=== PATIENT | female | born 1960 | race Caucasian/White ===

== ENCOUNTER → 2016-07-14 | Outpatient (CLI) | payer OTHER ==
[~2016-07-14] MED LIST: ALBUTEROL20 ml INH; CARDURA XL4 MG PO; CLARITIN10 M3 PO; NICOTINE PATCH1 EAC1 TD; PEPCID AC20 M2 PO; PREDNISONE PO; ZOLOFT50 MG PO
[2016-07-14 16:08] LABS: BASOPHIL# 0.1 X10e3 (0-0.3); BASOPHIL% 0.9 % (0-2.5); EOSINOPHIL# 0.2 X10e3 (0-0.7); HEMATOCRIT 37.2 % (35.0-45.0); HEMOGLOBIN 12.2 gm/dL (12.0-16.0); LYMPHOCYTE# 1.9 X10e3 (1.0-3.5); LYMPHOCYTE% 24.3 % (17.0-45.0); MEAN CORPUSCULAR HEMOGLOBIN 30.5 PG (28-34); MEAN CORPUSCULAR HGB CONC 32.8 g/dL (30-36); MEAN PLATELET VOLUME 7.6 FL (6.5-11.5); MONOCYTE# 0.5 X10e3 (0-1.0); MONOCYTE% 6.3 % (3.0-12.0); NEUTROPHIL# 5.1 X10e3 (1.5-7.1); NEUTROPHIL% 65.5 % (40-75); PLATELET COUNT 191 X10e3 (140-420); RED CELL DISTRIBUTION WIDTH 14.1 % (11.0-15.5); WHITE BLOOD COUNT 7.9 X10e3 (4.0-10.5)
[2016-07-14 16:15] LABS: DIFF IND NO
[2016-07-14 16:25] LABS: BUN/CREATININE RATIO 11.66; CALCIUM SERUM 9.2 mg/dL (8.4-10.2); CREATININE SERUM 1.2 mg/dL (0.6-1.4); GLOM FILT RATE Estimated 50.5 mL/min (>60)
== END | disposition home or self-care (01) ==
LOC: CLAB 15:42
PROVIDERS: Internal Medicine Nephrology
DX: N18.3 Chronic kidney disease, stage 3 (moderate) (principal)
CPT/HCPCS: 36415; 80048; 85025

== ENCOUNTER 2016-07-30 20:45 | Inpatient (IN) | payer OTHER ==
--- NOTE | ~2016-07-30 | CO ---
Unit #: [id number] #: [id number] Patient: QING ASHBY [id number] [facility]. [place], [place] [address] [id number] I MR#: [id number] NAME: QING ASHBY ROOM: 236 Age: 55 Sex: F Admission Date: 07/31/2016 : 1960 Attending Physician: Marni Martino M.D. Primary Care Physician: Delonte Sherwood M.D. Requesting Physician: Shelton Rock M.D. Consultation Date: 07/31/2016 CONSULTATION REPORT REASON FOR CONSULT Left lung mass and atelectasis. HISTORY OF PRESENT ILLNESS Ms. Qing Ashby is a 55-year-old female with a complaint of cough, fever, malaise who presented to [facility] emergency room. A CT of the chest was performed on 07/30/2016 which revealed complete atelectasis of the left upper lobe with narrowing at the left upper lobe bronchus suggestive of mass. Since admit, she has undergone an MRI of the brain and now a CT of the abdomen and pelvis. Dr. Weiss has been consulted for bronchoscopy in the a.m. and Dr. Delacruz is consulted for evaluation of atelectasis and suggested mass. PAST MEDICAL HISTORY 1. Anxiety. 2. Depression. 3. COPD. 4. Seasonal allergies. 5. GERD. 6. Hypertension. PAST SURGICAL HISTORY 1. EGD and colonoscopy 2014. 2. Bilateral tubal ligation. 3. Lumbar spinal surgery. 4. Ectopic . HOME MEDICATIONS Reviewed and remain in the chart. ALLERGIES 1. Penicillin. 2. Phenergan. SOCIAL HISTORY She smoked 1-1/2 packs of cigarettes per day for 25 years. She lives with daughter and granddaughter and her significant other. She denies any etoh abuse. She denies any illicit drug use as well. FAMILY HISTORY Father with lung and brain cancer. REVIEW OF SYSTEMS Positive for fever, chills, dyspnea on exertion, cough, wheezing, anxiety, Unit #: [id number] #: [id number] Patient: QING ASHBY depression and left shoulder pain. PHYSICAL EXAMINATION VITAL SIGNS: Temperature 98, heart rate 96 and regular, respiratory rate 20, blood pressure 150/66. Patient is on 2 liters nasal cannula. GENERAL: Ms. Qing Ashby is a well-groomed moderately obese, 55-year-old female, good historian regarding her own medical history. NEUROLOGIC/PSYCHIATRIC: Cranial nerves II-XII intact. Speech is appropriate and clear. She is congenial. HEENT: Normocephalic. No facial asymmetry. Sclerae anicteric. NECK: Supple. Trachea midline. No thyromegaly. No palpable cervical, supraclavicular, occipital lymphadenopathy. LUNGS: Auscultation of her lungs found them to be with expiratory wheezes with rhonchi that clear with cough. HEART: S1, S2 without rub, without murmur. No S3, no S4 and no peripheral edema. ABDOMEN: Large, round, soft. Bowel sounds positive. Nontender. No hepatosplenomegaly or pulsatile mass. DIAGNOSTIC STUDIES LABORATORY: BUN 17, creatinine 1.2, sodium 140, potassium 4.0. WBC 7.0, platelets 200, hemoglobin 12.9, hematocrit 39.7. IMPRESSION 1. Left upper lobe bronchus obstruction resulting in left upper lobe atelectasis. 2. Chronic obstructive pulmonary disease. 3. Gastroesophageal reflux disease. 4. Hypertension. 5. Anxiety. 6. Depression. PLAN 1. Dr. Delacruz will await the results of the bronchoscopy by Dr. Weiss. The patient will need a PET scan as an outpatient if she is positive for malignancy. 2. We will attempt to get PFTs and ABGs in the hospital. Dr. Weiss will request PFTs tomorrow and we are going to get ABGs tonight. 3. Then, Dr. Delacruz will review the MRI of the brain and we will follow with patient in our office. Dictated by... Soco Carey A.P.R.N. for Brittany Guy/juvencio TD: 07/31/2016 20:00 JOB #: [id number] Unit #: [id number] #: [id number] Patient: QING ASHBY CONSULTATION REPORT Page 1 of 1 X Soco Carey APRN CONSULTATION REPORT
--- NOTE | ~2016-07-30 | CO ---
Unit #: [id number] #: [id number] Patient: QING ASHBY [id number] [facility] [address] [facility]. [place], [place] [address] [id number] I MR#: [id number] NAME: QING ASHBY ROOM: 236 Age: 55 Sex: F Admission Date: 07/31/2016 : 1960 Attending Physician: Marni Martino M.D. Primary Care Physician: Delonte Sherwood M.D. Consultation Date: 08/01/2016 CONSULTATION REPORT LOCATION Room 236, bed 1. DIAGNOSIS Atelectasis left upper lobe. CHIEF COMPLAINT Chest pain and excessive cough with mild hemoptysis. HISTORY OF PRESENT ILLNESS Ms. Qing Ashby is a pleasant 55-year-old female who has a long-term history of smoking between one-half and one pack of cigarettes per day for 20 years. She presented to [facility] with a CT scan performed 07/31/2016 demonstrating narrowing of the left upper lobe bronchus with possible soft tissue component causing complete atelectasis left upper lobe. This was somewhat concerning for malignancy. As a result, patient was admitted. She was placed on IV antibiotics and ultimately underwent fiberoptic bronchoscopy with Dr. Dena Weiss earlier this morning, 08/01/2016. The patient was found to have no obvious endobronchial disease. Bronchial washings were obtained, however, no biopsy as there was no obvious mass. This was well tolerated. I have discussed this case with Pathology and initial review is read as negative though final slides have not been fully evaluated. Clearly, the specimen itself was mainly blood and inflammation with no obvious malignant cytology. I was asked to see Ms. Ashby for possible local radiotherapy. RECOMMENDATIONS Quite fortunately, Ms. Ashby likely has just local inflammation and infection resulting from pneumonia. She has inflammatory swelling of the left upper lobe bronchus with local irritation. Plans are to eliminate smoking all together. I have cautioned Ms. Ashby extensively about persistent smoking activity and development of malignancy in the future. Hopefully, she will utilize this as a wakeup call. She will also be placed on oral steroids as well as doxycycline. She will be utilizing albuterol inhaler to expand her airways as well. She is following up with Dr. Weiss as well as Dr. Delacruz in two weeks and possibly Dr. Rock in three weeks but unless final pathology is returned as positive, this may be unnecessary. I have nothing to offer Ms. Ashby at this time as she has no malignancy other than sound advice. It is my pleasure to see her in consultation. PAST MEDICAL HISTORY Unit #: [id number] #: [id number] Patient: QING ASHBY Remarkable for: 1. COPD. 2. Systemic hypertension. 3. Back surgery. 4. Tubal ligation. MEDICATIONS Include: 1. Albuterol. 2. Methylprednisolone. 3. Sertraline 50 mg daily. 4. Claritin 10 mg daily. 5. Transdermal nicotine patch. 6. Ativan for anxiety. 7. Doxycycline started 100 mg b.i.d. as an outpatient. 8. Protonix 40 mg daily. ALLERGIES 1. Penicillin. 2. Phenergan. NUTRITIONAL STATUS Stable. PAIN MANAGEMENT Improved. SOCIAL HISTORY Patient has smoked between one-half and one pack of cigarettes per day for 20 years. She denies alcohol abuse. She is not working currently. She has no exposure to known carcinogens. FAMILY HISTORY Remarkable for her father with lung cancer. PHYSICAL EXAMINATION VITAL SIGNS: Temperature 98.1, pulse 70, respirations 18, O2 saturation 96%, blood pressure 124/45. Height 5 feet 6 inches, weight 219, BMI 35. HEENT: Pupils are equal, round, reactive to light and accommodation. NECK: No obvious supraclavicular adenopathy. LUNGS: Demonstrate distant breath sounds but otherwise clear. Extensive physical exam not performed given current situation. EXTREMITIES: Demonstrate no clubbing, cyanosis, or edema on exam. NEUROLOGIC: No obvious neurological deficit. DIAGNOSTIC STUDIES LABORATORY: Glucose 156, BUN 14, creatinine 1.2, albumin 4.1, liver enzymes within normal limits. WBC 6.5, hemoglobin 12.4, platelet count 208,000. Approximately 30 minutes spent discussing case with patient. Dictated by... Buzz Snyder M.D. MRArcelia/cs Unit #: [id number] #: [id number] Patient: QING ASHBY TD: 08/01/2016 17:48 JOB #: [id number] CC: Brittany Guy M.D. ab Haj Ali, M.D. CONSULTATION REPORT Page 1 of 1 X Buzz Snyder MD CONSULTATION REPORT
--- NOTE | ~2016-07-30 | CO ---
Unit #: [id number] #: [id number] Patient: QING ASHBY [id number] [address] [place], [place] [address] [id number] MR#: [id number] NAME: QING ASHBY ROOM: 236 Age: 55 Sex: F Admission Date: 07/31/2016 : 1960 Attending Physician: Marni Martino M.D. Primary Care Physician: Delonte Sherwood M.D. Consultation Date: 07/31/2016 CONSULTATION REPORT CHIEF COMPLAINT Left upper lobe collapse. HISTORY OF PRESENT ILLNESS This is a 55-year-old female who has been smoking a half pack per day for 20 years. She came to the hospital with cough, wheezing, atypical chest pain, and chills. No fever. There is no blood. Patient had a CT of the chest on July 31, 2016, that showed narrowing of the left upper lobe bronchus with soft tissue changes with subsequent complete atelectasis of the left upper lobe. This is worrisome for malignancy. Patient is going for bronchoscopy either today or tomorrow. At present, she is very anxious and kind of depressed. REVIEW OF SYSTEMS CONSTITUTIONAL: No fever, no chills, no sweats, no weight loss. EYES: No visual symptoms. EARS, NOSE AND THROAT: There is no runny nose, sore throat or difficulty hearing. CARDIOVASCULAR: No chest pain. No shortness of breath. No palpitations. No orthopnea. No PND. RESPIRATORY: As mentioned above. GASTROINTESTINAL: No nausea, vomiting, diarrhea, constipation, hematochezia or melena. GENITOURINARY: No urinary frequency, hesitancy or urgency. No blood in the urine. MUSCULOSKELETAL: No muscle or joint pain. NEUROLOGIC: No headache. No numbness or tingling. No weakness. No seizure. PSYCHIATRIC: No anxiety, depression or mood disturbance. ENDOCRINE: No excessive urination or thirst. DERMATOLOGIC: No rash or change in the skin. ALLERGIC/IMMUNOLOGIC: No symptoms. HEMATOLOGIC/LYMPHATIC: Denies any symptoms. PAST MEDICAL HISTORY 1. Left upper lobe mass with left upper lobe collapse. 2. Chronic obstructive pulmonary disease. 3. Hypertension. SOCIAL HISTORY 1. Back surgery. 2. Tubal ligation. ALLERGIES Unit #: [id number] #: [id number] Patient: QING ASHBY Penicillin and Phenergan. SOCIAL HISTORY Patient has been smoking a half pack per day for 20 years. She denies alcohol abuse. She is not working. FAMILY HISTORY Father had lung cancer. PHYSICAL EXAMINATION VITAL SIGNS: Afebrile, pulse 75, respiratory rate 20, O2 saturation on 2 liters 96%, and blood pressure 150/70. GENERAL: Patient is comfortable. ECOG is 0. The patient is pleasant. HEENT: Moist mucosa. Pupils equally reactive to light. Extraocular muscles intact. Sclerae anicteric. No obvious bleeding from nasal mucosa or oral mucosa. Scalp normal. Hearing normal. NECK: No JVD. No lymphadenopathy. LYMPHATIC/HEMATOLOGIC: There is no palpable adenopathy in the neck, axilla or inguinal area. CARDIOVASCULAR: S1, S2. Regular rate and rhythm. No S3 or S4. RESPIRATORY: Bilateral wheezes. On the left side, there is a bronchial sound. ABDOMEN/GASTROINTESTINAL: Abdomen is soft, nontender, nondistended. No hepatosplenomegaly. EXTREMITIES: There is no clubbing, no cyanosis, no edema. No varicose veins. NEUROLOGICAL: Patient is alert, awake and oriented x3. Cranial nerves II-XII are intact. Sensory grossly intact. Motor is 4/5 in all four extremities. Gait is normal. Station is normal. Language is normal. Memory is normal. DTRs +2 in all four extremities. MUSCULOSKELETAL: No joint swelling. No bony tenderness. No muscle tenderness. SKIN: No petechiae, no rash, no ecchymosis. PSYCHIATRIC: No anxiety. No delusions or hallucinations. There is no agitation. Eye contact is normal. Affect is appropriate. There is no flight of ideas. DIAGNOSTIC STUDIES LABORATORY: WBC 7, hemoglobin 12.9, and platelets 200,000. Creatinine is 1.2. LFTs are normal. IMAGING: CT of the chest as mentioned above. ASSESSMENT This is a 55-year-old female who has a left upper lobe mass. There is collapse of the left upper lobe. I reviewed the CT of the chest with Dr. Delacruz. DISCUSSION I had an extensive discussion with patient. I also discussed the case with Dr. Delacruz and also discussed the case with Dr. Snyder. After the bronchoscopy, treatment options include surgery versus chemo and radiation. PLAN I will get an MRI of the brain and CT of the abdomen and pelvis. Patient is going for bronchoscopy. Once the pathology results become available, then will discuss treatment options. If it is a nonsmall cell cancer, we may consider her for possible surgery. She may need a left-sided Unit #: [id number] #: [id number] Patient: QING ASHBY pneumonectomy. At present, I am not sure. Patient will also be evaluated for possible chemo and radiation in the future. We discussed all the options. Once the pathology becomes available and staging workup, will discuss again. Dictated by... Brittany Tavarez TD: 07/31/2016 14:02 JOB #: [id number] CONSULTATION REPORT Page 1 of 1 X Shelton Rock MD X CONSULTATION REPORT
--- NOTE | ~2016-07-30 | HP ---
Unit #: [id number] #: [id number] Patient: QING ASHBY [id number] [address] [place], [place] [address] [id number] I MR#: [id number] NAME: QING ASHBY ROOM: 01341 Age: 55 Sex: F Admission Date: 07/31/2016 : 1960 Attending Physician: Anisa Grullon M.D. Primary Care Physician: Delonte Sherwood M.D. HISTORY AND PHYSICAL CHIEF COMPLAINT Cough with abnormal chest x-ray and CT scan worrisome for malignancy. HISTORY This pleasant 55-year-old female with GERD, anxiety and depression, was admitted for cough. The patient states that she has been treated with antibiotics and seen an supervisor forming and tempering, as well as her primary care physician for an ongoing cough. More recently developed fatigue, feeling chilled, hot, increasing shortness of breath. Has been experiencing some left upper arm discomfort as well. She presented to this emergency department last evening where a chest x-ray was quite abnormal. Therefore, a CT scan was performed showing narrowing of the left upper lobe bronchus by soft tissue, worrisome for malignancy with atelectasis of the left upper lobe. In the ER she was given IV fluids and dose of prednisone. PAST MEDICAL HISTORY 1. Environmental allergies. 2. Anxiety and depression. 3. GERD. 4. Essential hypertension. 5. Removal of a fallopian tube after an ectopic . 6. BTL. 7. Low back surgery. ALLERGIES Penicillin and Phenergan. HOME MEDICATIONS Zoloft 50 mg daily; omeprazole 20 mg daily; Claritin; Cardura, uncertain dose; Flonase nasal spray; and Tylenol. FAMILY HISTORY Lung and brain cancer, hypertension. SOCIAL HISTORY The patient lives with her boyfriend, daughter and granddaughter. She smokes 1 1/2 packs per day of tobacco and does not drink alcohol. REVIEW OF SYSTEMS Notable for shortness of breath, cough, feeling chilled and hots, GERD, environmental allergies, anxiety, depression, above mentioned surgeries, essential hypertension. All other systems were reviewed and are negative. Unit #: [id number] #: [id number] Patient: QING ASHBY PHYSICAL EXAMINATION GENERAL: Pleasant, anxious, moderately obese 55-year-old female. VITAL SIGNS: Temperature 98.4, pulse 90, respirations 18, blood pressure 137/69, O2 saturation is 90% on room air. HEENT: Eyes - PERRLA, extraocular muscles are intact. Pharynx is benign. NECK: Supple without adenopathy or thyromegaly. CHEST: Clear. CARDIAC: Normal S1 and S2 without S3, S4, or murmur. ABDOMEN: Bowel sounds are present. No hepatosplenomegaly, tenderness or masses. EXTREMITIES: Without clubbing, cyanosis or edema. Pedal pulses are present. NEUROLOGIC: Patient is awake, alert and oriented. Her cranial nerves are intact. She has +5/5 strength throughout. Normal rapid alternating movements. Normal [id number]. Negative pronator drift. DIAGNOSTIC STUDIES ADMISSION LABS: Hematocrit is 39.7, normal white count and platelet count. SMA 12 is normal. IMAGING STUDIES: Chest x-ray - abnormalities in the left hemithorax concerning for a possibility of underlying malignancy, fullness of the left hilum and asymmetric opacity of the left hemithorax. CT scan shows narrowing of the left upper lobe bronchus, atelectasis of the left upper lobe, small hiatal hernia, atrophy of the left kidney, contracted gallbladder, calcification in the LAD distribution. ASSESSMENT 1. Narrowing of the left upper lobe bronchus worrisome for malignancy. 2. Tobacco use. 3. Essential hypertension. 4. GERD. 5. Anxiety and depression. 6. Persistent cough. PLANS 1. IV fluids and antibiotics. 2. Anxiolytics. 3. Pulmonary oncology consultation. 4. SCDs for DVT prophylaxis. Dictated by Anisa Grullon M.D. AML/ts TD: 07/31/2016 05:02 JOB #: [id number] Unit #: [id number] #: [id number] Patient: QING ASHBY HISTORY AND PHYSICAL Page 1 of 1 X Anisa Grullon MD HISTORY AND PHYSICAL
--- NOTE | ~2016-07-30 | CR72 ---
[facility] A Service of [facility] & [facility] RADIOLOGY TEXT RESULTS PATIENT: QING ASHBY LOCATION: A 236-01 : 59 UNIT #: [id number] AGE: [address]: Marni Martino MD SEX: F ORDER DR: [id number] [facility] [address] [place], [place] [address] [id number] I MR#: [id number] Acc #: [id number] NAME: QING ASHBY : 1960 SEX: F STUDY DATE/TIME: 08/01/2016 14:16 UNIT: [facility] ROOM: [facility] STUDY DESCRIPTION: CR Chest Single View Portable Attending Physician: Marni Martino M.D. Ordering Physician: Marni Martino M.D. Primary Care Physician: Delonte Sherwood M.D. MEDICAL IMAGING REPORT This report is preliminary unless electronic signature is present EXAM AP portable chest 08/01/2016. HISTORY 55-year-old female with left upper lobe collapse noted on CT examination yesterday and chest x-ray 07/30/2016. Short of air. Follow up exam. TECHNIQUE AP portable chest x-ray. FINDINGS Complete left upper lobe collapse noted on CT examination yesterday and chest x-ray 2 days ago has at least partially resolved. Much of the left upper lobe appears clear today. The left heart border remains obscured, and some lingular atelectasis may remain present. Right lung clear. Mild cardiomegaly. Pulmonary vascularity is normal. No pneumothorax. IMPRESSION At least partial re-expansion of the left upper lobe since yesterday. No pneumothorax. Dictated by... Delonte Ivory M.D. THIS IS AN ELECTRONICALLY VERIFIED REPORT Delonte Ivory M.D. at 08/01/2016 10:42 PM Jailyn TD: 08/01/2016 18:28 JOB #: [id number] MEDICAL IMAGING REPORT Page 1 of 1 COPY
--- NOTE | ~2016-07-30 | OR ---
Unit #: [id number] #: [id number] Patient: QING ASHBY [id number] [address] [address] [id number] I MR#: [id number] NAME: QING ASHBY ROOM: 236 Date of Procedure: 08/01/2016 Admission Date: 07/31/2016 Surgeon: Corie Weiss M.D. : 1960 Attending Physician: Marni Martino M.D. Primary Care Physician: Delonte Sherwood M.D. PROCEDURE OPERATIVE NOTE PROCEDURE Diagnostic bronchoscopy. INDICATIONS FOR PROCEDURE Left upper lobe collapse, rule out malignancy. POSTOP FINDINGS 1. Slightly erythematous left upper (1) with no obvious or overt endobronchial mass or lesions. 2. No excessive secretions. PREMEDICATION MAC sedation. BRIEF PROCEDURE NOTE An informed consent was obtained from the patient after explaining the benefits and risks of this procedure. Patient was brought to the endoscopy unit and she was premedicated with propofol via anesthesia team. After proper sedation was obtained, lidocaine spray was used in the throat and then a bronchoscope was advanced through the oral cavity and, at the level of the vocal cords, 2% lidocaine was instilled. Then the bronchoscope was advanced through the vocal cords, which appeared normal, and then immediately into the trachea, which also appeared normal. Then, at the level of the maninder, 1% lidocaine x 10 mL was instilled and then the bronchoscope was advanced into the right main bronchus and the right upper lobe, right lower lobe, and right middle lobe were examined; which appeared normal with no endobronchial lesions or secretions. Then, the bronchoscope was retracted and then readvanced into the left main bronchus and the left upper lobe, lingula, and left lower lobe were examined. The left upper lobe appeared slightly erythematous, but there was no obvious endobronchial mass or mucous plugs. Washing and brushings were obtained from the left upper lobe to rule out any malignancy or underlying infection. The bronchoscope was retracted out and patient tolerated her procedure well with no immediate complications. Dictated by... Corie Weiss M.D. EA/pc Unit #: [id number] #: [id number] Patient: QING ASHBY TD: 08/19/2016 13:09 JOB #: [id number] PROCEDURE OPERATIVE NOTE Page 1 of 1 X CORIE JEAN-BAPTISTE MD PROCEDURE OPERATIVE NOTE
--- NOTE | ~2016-07-30 | MR17 ---
[facility] A Service of [facility] & [facility] RADIOLOGY TEXT RESULTS PATIENT: QING ASHBY LOCATION: C2A 236- : 58 UNIT #: [id number] AGE: [address]: Marni Martino MD SEX: F ORDER DR: [id number] [facility] [address] [place], [place] [address] [id number] I MR#: [id number] Acc #: [id number] NAME: QING ASHBY : 1960 SEX: F STUDY DATE/TIME: 07/31/2016 16:24 UNIT: [facility] ROOM: 236 STUDY DESCRIPTION: MR Brain WWo Contrast Attending Physician: Marni Martino M.D. Ordering Physician: Shelton Rock M.D. Primary Care Physician: Delonte Sherwood M.D. MRI CENTER REPORT This report is preliminary unless electronic signature is present. EXAM MRI brain with and without HISTORY Lung cancer. Left side lung mass. Observe for suspected intracranial metastatic disease. New diagnosis of lung cancer. Complaints of headache and dizziness for years. History of hypertension. COMMENT MRI of the brain was performed prior to and following intravenous administration of 20 mL of MultiHance. COMPARISON There is no prior. FINDINGS There is no evidence for a recent ischemic insult on the diffuse series. Incidental note made of a partially empty sella. There is motion limitation of the study. There is no extraaxial fluid collection. The ventricles are normal in size and configuration. Motion limiting sequences were utilized because of the patient motion. This does limit the study, but allowing for this, no pathologic intracranial enhancement is suspected. No convincing evidence for intracranial metastatic disease. There is mild white matter signal abnormality with the largest most focal lesion seen right lateral periapical white matter about 6 mm in dimension. This is probably due to small vessel disease in age group. The major intracranial flow voids are maintained. The patient has a small amount of fluid or inflammatory change in the left sided mastoid air cells. Paranasal sinuses are essentially clear. There is no MRI evidence for intracranial hemorrhage. IMPRESSION [facility] A Service of [facility] & [facility] RADIOLOGY TEXT RESULTS PATIENT: QING ASHBY LOCATION: [facility] 236-01 : 58 UNIT #: [id number] AGE: [address]: Marni Martino MD SEX: F ORDER DR: 1. Motion limited study. Allowing for this, nothing to suggest intracranial metastatic disease. 2. Mild probably sequelae of small vessel disease. 3. Incidental note made of a partially empty sella. Small amount of fluid or inflammatory change on the left side mastoid air cells. STAT * RESULT Dictated by... Janeth Morgan M.D. THIS IS AN ELECTRONICALLY VERIFIED REPORT Janeth Morgan M.D. at 08/01/2016 8:04 AM SAC/to TD: 07/31/2016 18:30 JOB #: [id number] MRI CENTER REPORT Page 1 of 1 COPY
--- NOTE | ~2016-07-30 | CT2 ---
[facility] A Service of [facility] RADIOLOGY TEXT RESULTS PATIENT: QING ASHBY LOCATION: [facility] 236-01 : 58 UNIT #: [id number] AGE: [address]: Marni Martino MD SEX: F ORDER DR: [id number] [facility] [address]. [place], [place] [address] [id number] I MR#: [id number] Acc #: [id number] NAME: QING ASHBY : 1960 SEX: F STUDY DATE/TIME: 07/31/2016 17:22 UNIT: [facility] ROOM: [facility] STUDY DESCRIPTION: CT Abd and Pelv W Cont Attending Physician: Marni Martino M.D. Ordering Physician: Shelton Rock M.D. Primary Care Physician: Delonte Sherwood M.D. MEDICAL IMAGING REPORT This report is preliminary unless electronic signature is present EXAM CT abdomen and pelvis with contrast HISTORY Lung mass on recent chest CT. Nausea x2 days. TECHNIQUE Axial images form through the abdomen and pelvis following IV contrast. Multiplanar reconstructed images reviewed at a workstation. This CT exam was performed with one or more of the following radiation dose reduction techniques: automatic exposure control, adjustment of mA and/or kV according to patient size, and iterative reconstruction. FINDINGS ABDOMEN: Lung bases unremarkable, except for a small amount of atelectasis. Small hiatal hernia. The liver and spleen appear normal. Suspected gallstone within the gallbladder neck but no CT evidence of acute cholecystitis. Pancreas and adrenal glands unremarkable. Marked left renal atrophy with compensatory hypertrophy right kidney. Small bowel colon unremarkable. Retroperitoneum demonstrates minimal aortic atherosclerotic changes. PELVIS: The bladder, uterus and adnexa appear normal. The osseous structures appear normal. Generalized obesity. IMPRESSION 1. No acute intraabdominal or intrapelvic pathology identified. 2. Suspected solitary gallstone and uncomplicated cholelithiasis. 3. Left renal cortical atrophy. 4. Small hiatal hernia. [facility] A Service of [facility] RADIOLOGY TEXT RESULTS PATIENT: QING ASHBY LOCATION: [facility] 236-01 : 58 UNIT #: [id number] AGE: [address]: Marni Martino MD SEX: F ORDER DR: Dictated by... Brittany Avila M.D. THIS IS AN ELECTRONICALLY VERIFIED REPORT Brittany Avila M.D. at 08/01/2016 6:35 PM NILAY/skyler TD: 07/31/2016 22:15 JOB #: [id number] MEDICAL IMAGING REPORT Page 1 of 1 COPY
--- NOTE | ~2016-07-30 | CR72 ---
[facility] A Service of [facility] RADIOLOGY TEXT RESULTS PATIENT: QING ASHBY LOCATION: [facility] : 58 UNIT #: [id number] AGE: [address]: LALITO NIETO APRN SEX: F ORDER DR: [id number] [facility] [address] [place], [place] [address] [id number] MR#: [id number] Acc #: [id number] NAME: QING ASHBY : 1960 SEX: F STUDY DATE/TIME: 07/30/2016 21:11 UNIT: [facility] ROOM: STUDY DESCRIPTION: CR Chest Single View Portable Attending Physician: Lalito Nieto Aprn Ordering Physician: Lalito Nieto Aprn Primary Care Physician: Delonte Sherwood M.D. MEDICAL IMAGING REPORT This report is preliminary unless electronic signature is present EXAM Single view chest HISTORY cough, wheezing, lethargic, symptoms for 3 months. No injury. History of hypertension. COMMENT Two frontal portable views of the chest submitted for review timed 21:11, 07/30/2016. No prior. FINDINGS There is an abnormal appearance of the left hemithorax with asymmetric opacification probably due to some layering pleural fluid and airspace disease, and there is asymmetric enlargement of the left hilum. The appearance is concerning for hilar mass or adenopathy. Recommend correlation with CT chest at this time. Heart is partly obscured by the parenchymal pathology on the left, and there may be some left hemithorax volume loss. Likely underlying chronic lung disease with distortion of the parenchymal architecture on the right and some emphysematous changes appreciated at the right apex. Small amount of atelectasis or scarring at the right base. No pneumothorax. IMPRESSION 1. Abnormal chest x-ray. Recommend correlation with a contrast enhanced chest CT at this time. In particular there are abnormalities in the left hemithorax which is concerning the possibility of an underlying malignancy. There is fullness of the left hilum and asymmetric opacification of the left hemithorax probably due to a combination of pleural fluid and airspace disease as well as some left hemithorax volume loss. 2. Likely underlying chronic obstructive lung disease. STS. [facility] A Service of [facility] & [facility] RADIOLOGY TEXT RESULTS PATIENT: QING ASHBY LOCATION: [place] : 58 UNIT #: [id number] AGE: [address]: LALITO NIETO APRN SEX: F ORDER DR: 3. Findings called by myself to the emergency room at the end of this dictation. STAT * RESULT Dictated by... Janeth Morgan M.D. THIS IS AN ELECTRONICALLY VERIFIED REPORT Janeth Morgan M.D. at 07/30/2016 11:07 PM Itzel TD: 07/30/2016 21:45 JOB #: [id number] MEDICAL IMAGING REPORT Page 1 of 1 COPY
--- NOTE | ~2016-07-30 | CO ---
Unit #: [id number] #: [id number] Patient: QING ASHBY [id number] [address] [place], [place] [address] [id number] I MR#: [id number] NAME: QING ASHBY ROOM: 236 Age: 55 Sex: F Admission Date: 07/31/2016 : 1960 Attending Physician: Marni Martino M.D. Primary Care Physician: Delonte Sherwood M.D. Consultation Date: 07/31/2016 CONSULTATION REPORT REASON FOR CONSULT Abnormal CAT scan. HISTORY OF PRESENT ILLNESS This is a very pleasant 55-year-old female with past medical history significant for extensive smoking of at least 1-2 packs per day for the last 20 years, GERD, anxiety and depression, who presented to the emergency room for evaluation of cough. The patient stated that she has been ill with some upper respiratory symptoms for awhile and she was treated by her retail sales consultant with multiple courses of antibiotics with no real improvement. Yesterday she was also experiencing some left upper arm discomfort. Upon presentation to the ER, her chest x-ray was abnormal and thus a CT chest was obtained which showed narrowing of the left upper lobe concerning for malignancy. The patient has been also feeling short of breath for the last few months but more recently the last few days. PAST MEDICAL HISTORY 1. Environmental allergies. 2. Anxiety. 3. Depression. 4. Hypertension. 5. GERD. 6. Morbid obesity. PAST SURGICAL HISTORY 1. Fallopian tube after ectopic . 2. BTL. 3. Low back surgery. HOME MEDICATIONS 1. Zofran. 2. Omeprazole. 3. Claritin. 4. Cardura. 5. Flonase. 6. Tylenol. ALLERGIES 1. Penicillin. 2. Phenergan. Unit #: [id number] #: [id number] Patient: QING ASHBY SOCIAL HISTORY Patient smoked 1-2 packs of cigarettes for the last 20 years. No history of alcohol or drug abuse. She lives with her boyfriend and daughter and granddaughter. FAMILY HISTORY Lung and brain cancer, hypertension. REVIEW OF SYSTEMS A 12-point review of systems were obtained and were negative except for what was mentioned in the HPI. PHYSICAL EXAMINATION VITAL SIGNS: Temperature 98.4, pulse 90, blood pressure 129/62, respiratory rate 24. GENERAL: The patient is very pleasant but anxious about her scan. HEENT: Atraumatic, normocephalic. PERRLA. EOMI. NECK: Supple. No JVD. No lymphadenopathy. LUNGS: Bilateral diffuse wheezing. HEART: S1, S2. No murmur, gallop or rubs. ABDOMEN: Soft, nontender. Bowel sounds are positive. No hepatosplenomegaly. EXTREMITIES: No edema or cyanosis. NEUROLOGIC: Awake, alert, and oriented x3. No focal motor/sensory deficit. SKIN: No rashes. DIAGNOSTIC STUDIES LABORATORY: Creatinine 1.2, sodium 140. White blood cell count 7.0, hemoglobin 12.9, platelets 200. IMAGING: CAT scan is concerning for left upper lobe malignancy. ASSESSMENT 1. Left upper lobe lung collapse. 2. Chronic obstructive pulmonary disease exacerbation. 3. Hypertension. 4. Morbid obesity. 5. Smoking. 6. Gastroesophageal reflux disease. 7. Depression. 8. Anxiety. PLAN 1. Patient will be scheduled for bronchoscopy with possible endobronchial biopsy. 2. Will add IV steroids and bronchodilator for COPD exacerbation. 3. I will continue doxycycline for 5 days. 4. IV fluids and n.p.o. after midnight. 5. DVT prophylaxis. 6. Patient was counseled about smoking cessation. She is currently on Chantix and nicotine patches. I would like to thank Dr. Grullon for allowing me to be part of this patient's care. Unit #: [id number] #: [id number] Patient: QING ASHBY Dictated by... Brittany Tijerina TD: 07/31/2016 21:37 JOB #: [id number] CONSULTATION REPORT Page 1 of 1 X CORIE JEAN-BAPTISTE MD CONSULTATION REPORT
--- NOTE | ~2016-07-30 | DS ---
Unit #: [id number] #: [id number] Patient: QING ASHBY 199810 [address] [address] [id number] I MR#: [id number] NAME: QING ASHBY ROOM: 236 Age: 55 Sex: F Admission Date: 07/31/2016 : 1960 Discharge Date: 08/01/2016 Attending Physician: Marni Martino M.D. Primary Care Physician: Delonte Sherwood M.D. DISCHARGE SUMMARY ADMITTING DIAGNOSES 1. Narrowing of left upper lobe bronchus, worrisome for malignancy. 2. Tobacco use. 3. Essential hypertension. 4. Gastroesophageal reflux disease. 5. Anxiety and depression. 6. Persistent cough. DISCHARGE DIAGNOSES 1. Narrowing of left upper lobe bronchus, left upper lobe atelectasis status post bronchoscopy. 2. Acute exacerbation of chronic obstructive pulmonary disease. 3. Hypertension. 4. Gastroesophageal reflux disease. 5. Anxiety and depression. CONSULTANTS 1. Shelton Rock M.D., hematology/oncology. 2. Senthil Delacruz M.D., thoracic surgery. 3. Nilay Weiss M.D., pulmonary medicine. PROCEDURES Bronchoscopy status post bronchial brushings from the left upper lobe, as well as left upper lobe bronchoalveolar lavage. CONDITION Stable. DISPOSITION Home. DISCHARGE MEDICATIONS 1. Cardura XL 4 mg p.o. daily for blood pressure. 2. Zoloft 50 mg p.o. every morning. 3. Claritin 10 mg p.o. daily. 4. Nicotine transdermal 14 mg transdermally every morning OTC. 5. Albuterol metered-dose inhaler 2 puffs inhaled q.i.d. p.r.n. shortness of breath. 6. Doxycycline 100 mg p.o. b.i.d. x7 days (#14, no refills). 7. Prednisone taper 30 mg p.o. daily for 2 days, then decrease by 10 mg p.o. daily every 2 days, then stop. PERTINENT DIAGNOSTIC STUDIES LABORATORY: WBC 6.5, hemoglobin 12.4, hematocrit 37.9, platelet count Unit #: [id number] #: [id number] Patient: QING ASHBY 208,000. Sodium 137, potassium 4.3, chloride 107, CO2 20, glucose 156, BUN 14, creatinine 1.2, calcium 9.2, AST 25, ALT 19, alkaline phosphatase 64, bili total 0.5, albumin 4.1. Iron 4.2, vitamin B12 219, ferritin 26. IMAGING: CT of the chest. Impression - Narrowing of the left upper lobe bronchus by soft tissue change with subsequent complete atelectasis of the left upper lobe, worrisome for malignancy, and followup with bronchoscopy is recommended. This accounts for the findings in the chest x-ray. Lungs otherwise clear. No adenopathy. Small hiatal hernia. Near complete atrophy of the left kidney. Contracted gallbladder. Gallstones could be present. This could be evaluated with nonemergent ultrasound if indicated. Fatty infiltration of the liver is noted, as well. Coronary artery disease, predominately in the LAD distribution. MRI of the brain with and without contrast. Impression - Motion limited study. Allowing for this, nothing to suggest intracranial metastatic disease. Mild probable sequelae of small vessel disease. Incidental note made of partially empty sella. Small amount of fluid or inflammatory change on the left side mastoid air cells. CT of the abdomen and pelvis with contrast. Impression - No acute intraabdominal or intrapelvic pathology identified. Suspected solitary gallstone and uncomplicated cholelithiasis. Left renal cortical atrophy. Small hiatal hernia. HOSPITAL COURSE The patient is a 55-year-old female who presented to [facility] on the date of admission with complaint of cough. Her symptoms were associated with fatigue, feeling chilled, hot and having increasing shortness of breath. She also complained of left upper arm discomfort. CT of the chest was performed, which showed narrowing of the left upper lobe bronchus by soft tissue, which was worrisome for malignancy, as well as atelectasis of the left upper lobe. The patient was treated with IV fluids and IV Solu-Medrol in the emergency department. She was admitted to the hospital for further evaluation and management of her condition. The patient was evaluated by Dr. Weiss and underwent bronchoscopy with results as dictated above. The patient tolerated the procedure well. She has been evaluated by Soco Carey, nurse practitioner with Dr. Senthil Delacruz. STAT chest x-ray report is pending at this time. The patient's breath sounds are decreased on auscultation in all cmgovern bilaterally, and walking O2 sat is pending at this time. The patient has been evaluated by Dr. Martino. Pending results of the x-ray and the walking O2 saturation results, the patient will be discharged home, and home O2 will be arranged if O2 saturations are less than 90% with ambulation. The patient continues to smoke cigarettes, and she has been advised to stop smoking, and we have recommended nicotine transdermal patch, which she may purchase over the counter after discharge. Acute exacerbation of COPD. The patient was started on IV Solu-Medrol. Pulmonary status is stable at this time. Pending results of chest x-ray and walking O2 sats on room air, she will be discharged home on a prednisone taper as dictated above. Hypertension. The patient's blood pressure trend has been stable. Again, the patient has been evaluated by Dr. Martino. The patient is Unit #: [id number] #: [id number] Patient: QING ASHBY stable. DISCHARGE INSTRUCTIONS 1. The patient is to call and schedule a followup appointment with Dr. Weiss to be seen in 2 weeks. 2. She is also to call and schedule a followup appointment with Dr. Delacruz in 2 weeks with the plan at this time for repeat CT scan of the chest in 2 months to be arranged through Dr. Delacruz's office. 3. The patient is to call and schedule a followup appointment with Dr. Rock in 3 weeks. 4. The patient is to follow up with her primary care physician in 5-7 days. Dictated by... Melissa Coronado A.P.R.N. for Brittany Burton/devan TD: 08/04/2016 10:53 JOB #: [id number] DISCHARGE SUMMARY Page 1 of 1 X Melissa Coronado APRN X DISCHARGE SUMMARY
--- NOTE | ~2016-07-30 | CT55 ---
[facility] A Service of [facility] & [facility] RADIOLOGY TEXT RESULTS PATIENT: QING ASHBY LOCATION: [facility] 236-01 : 58 UNIT #: [id number] AGE: [address]: Marni Martino MD SEX: F ORDER DR: [id number] [facility] [address] [place], [place] [address] [id number] I MR#: [id number] Acc #: [id number] NAME: QING ASHBY : 1960 SEX: F STUDY DATE/TIME: 07/31/2016 00:09 UNIT: CEDOF ROOM: 94944 STUDY DESCRIPTION: CT Chest W Con Attending Physician: Anisa Grullon M.D. Ordering Physician: Lalito Nieto Aprn Primary Care Physician: Delonte Sherwood M.D. MEDICAL IMAGING REPORT This report is preliminary unless electronic signature is present EXAM Chest CT 07/31/2016 at 0009 hours INDICATIONS Cough, sinus drainage and shortness of air x2 weeks. Abnormal chest x-ray 07/30/2016 showing potential hilar mass. TECHNIQUE Axial images were obtained through the chest following IV contrast administration. Multiplanar reformats were obtained. No comparison chest CT. This CT exam was performed with one or more of the following radiation dose reduction techniques: automatic exposure control, adjustment of mA and/or kV according to patient size, and iterative reconstruction. FINDINGS There is narrowing of the left upper lobe bronchus by soft tissue which could reflect a mass. This is causing complete atelectasis of the left upper lobe which accounts for the findings on the chest x-ray. Malignancy not excluded, and followup with bronchoscopy is recommended. No adenopathy by size criteria is identified. There is no pleural or pericardial effusion. Coronary artery disease is present, particularly in the LAD. The lungs otherwise are clear. There are no suspicious osseous lesions. There is a small hiatal hernia. There is severe atrophy of the left kidney. There is mild hepatic steatosis. Gallbladder is contracted not well evaluated. I cannot exclude the presence of gallstones. IMPRESSION 1. Narrowing of the left upper lobe bronchus by soft tissue change with subsequent complete atelectasis of the left upper lobe. This is worrisome for malignancy, and followup with bronchoscopy is STS. [facility] A Service of [facility] RADIOLOGY TEXT RESULTS PATIENT: QING ASHBY LOCATION: [facility] 236-01 : 58 UNIT #: [id number] AGE: [address]: Marni Martino MD SEX: F ORDER DR: recommended. This accounts for the findings in the chest x-ray. 2. The lungs otherwise are clear. There is no adenopathy. 3. Small hiatal hernia. 4. Near complete atrophy of the left kidney. 5. Contracted gallbladder. Gallstones could be present. This could evaluate with non emergent ultrasound if indicated. Fatty infiltration of the liver is noted as well. 6. Coronary artery disease, predominately in the LAD distribution. Dictated by... Nav Mcmillan Jr., M.D. THIS IS AN ELECTRONICALLY VERIFIED REPORT Nva Mcmillan Jr., M.D. at 07/31/2016 10:17 PM DIANDRA/martha TD: 07/31/2016 01:08 JOB #: [id number] MEDICAL IMAGING REPORT Page 1 of 1 COPY
[~2016-07-30 20:45] MED LIST changes: -ALBUTEROL20 ml INH; -CARDURA XL4 MG PO; -CLARITIN10 M3 PO; -NICOTINE PATCH1 EAC1 TD; -PREDNISONE PO
[2016-07-30 23:22] LABS: BASOPHIL# 0.1 X10e3 (0-0.3); BASOPHIL% 0.9 % (0-2.5); DIFF IND NO; EOSINOPHIL# 0.1 X10e3 (0-0.7); EOSINOPHIL% 1.6 % (0.0-7.0); HEMATOCRIT 39.7 % (35.0-45.0); HEMOGLOBIN 12.9 gm/dL (12.0-16.0); LYMPHOCYTE# 1.4 X10e3 (1.0-3.5); LYMPHOCYTE% 20.4 % (17.0-45.0); MEAN CELL VOLUME 92.5 FL (83-96); MEAN CORPUSCULAR HEMOGLOBIN 30.1 PG (28-34); MEAN CORPUSCULAR HGB CONC 32.5 g/dL (30-36); MEAN PLATELET VOLUME 8.1 FL (6.5-11.5); MONOCYTE# 0.3 X10e3 (0-1.0); MONOCYTE% 4.8 % (3.0-12.0); NEUTROPHIL# 5.1 X10e3 (1.5-7.1); NEUTROPHIL% 72.3 % (40-75); PLATELET COUNT 200 X10e3 (140-420); RED BLOOD COUNT 4.29 X10e (3.90-5.30)
[2016-07-30 23:49] LABS: ALBUMIN SERUM 4.4 g/dL (3.5-5.0); BILIRUBIN, DIRECT 0.1 mg/dL (0.0-0.2); BILIRUBIN,INDIRECT 0.5 mg/dL (0.0-0.9); BILIRUBIN,TOTAL 0.6 mg/dL (0.2-2.0); BUN/CREATININE RATIO 14.16; CALCIUM SERUM 9.2 mg/dL (8.4-10.2); CREATININE SERUM 1.2 mg/dL (0.6-1.4); GLOM FILT RATE Estimated 50.5 mL/min (>60); PROTEIN TOTAL SERUM 7.8 g/dL (6.0-8.3)
[2016-07-31] MEDS ORDERED: ZOLOFT50 MG PO (05:20)
[2016-07-31] MEDS ORDERED: CLARITIN10 M3 PO (05:21)
[2016-07-31] MEDS ORDERED: CARDURA XL4 MG PO (12:56)
[2016-07-31 20:33] LABS: ARTERIAL BLD GAS O2 SATURATION 95.7 % (90.0-100.0); ARTERIAL BLOOD GAS CARBOXY HB 0.8 %sat (0.0-9.0); ARTERIAL BLOOD GAS HCO3 24.5 mmol/L; ARTERIAL BLOOD GAS MET HB 0.9 %sat (0.0-2.0); ARTERIAL BLOOD GAS PCO2 39.1 mmHg (35.0-45.0); ARTERIAL BLOOD GAS PO2 82.8 mmHg (80.0-100); ARTERIAL BLOOD GAS pH 7.405 (7.350-7.450)
[2016-07-31 20:34] LABS: ARTERIAL BLOOD GAS ALLEN TEST NORMAL; ARTERIAL BLOOD GAS ART SITE RIGHT RADIAL; ARTERIAL BLOOD GAS DELIVERY NASAL CANNULA; ARTERIAL DRAW? YES
[2016-08-01 09:29] LABS: HEMATOCRIT 37.9 % (35.0-45.0); HEMOGLOBIN 12.4 gm/dL (12.0-16.0); MEAN CELL VOLUME 91.7 FL (83-96); MEAN CORPUSCULAR HEMOGLOBIN 30.1 PG (28-34); MEAN CORPUSCULAR HGB CONC 32.8 g/dL (30-36); MEAN PLATELET VOLUME 7.9 FL (6.5-11.5); RED BLOOD COUNT 4.13 X10e (3.90-5.30); RED CELL DISTRIBUTION WIDTH 13.8 % (11.0-15.5); WHITE BLOOD COUNT 6.5 X10e3 (4.0-10.5)
[2016-08-01 10:35] LABS: FERRITIN 26 ng/mL (11-307)
[2016-08-01 10:37] LABS: ALBUMIN SERUM 4.1 g/dL (3.5-5.0); BILIRUBIN,TOTAL 0.5 mg/dL (0.2-2.0); BUN/CREATININE RATIO 11.66; CALCIUM SERUM 9.2 mg/dL (8.4-10.2); CREATININE SERUM 1.2 mg/dL (0.6-1.4); GLOM FILT RATE Estimated 50.5 mL/min (>60); POTASSIUM 4.3 mmol/L (3.5-5.1); PROTEIN TOTAL SERUM 7.2 g/dL (6.0-8.3)
[2016-08-01 12:16] LABS: BF TOTAL NUCLEATED CELL COUNT 2671 CMM (0-100); BODY FLUID APPEARANCE BLOODY; BODY FLUID RBC 131195 CMM; BODY FLUID SOURCE BRONCHIAL LAVAGE
[2016-08-01] MEDS ORDERED: NICOTINE PATCH1 EAC1 TD (15:22)
[2016-08-01] MEDS ORDERED: ALBUTEROL20 ml INH (15:24)
[2016-08-01] MEDS ORDERED: PREDNISONE PO (15:26)
== END 2016-08-01 16:44 | disposition home or self-care (01) | DRG 167 ==
LOC: CFTX 20:45 → CEDOF 07-31 03:30 → C2A 07-31 13:48
PROVIDERS: Internal Medicine Hematology; Internal Medicine Pulmonary Disease; Nurse Practitioner; Nurse Practitioner Family
PROC: 0BBC8ZX Excision of Right Upper Lung Lobe, Via Natural or Artificial Opening Endoscopic, Diagnostic (ICD-10-PCS; principal; 2016-08-01 08:14)
DX: J98.11 Atelectasis (principal); T17.590A Other foreign object in bronchus causing asphyxiation, initial encounter; J44.1 Chronic obstructive pulmonary disease with (acute) exacerbation; E66.01 Morbid (severe) obesity due to excess calories; Z88.0 Allergy status to penicillin; Z88.8 Allergy status to other drugs, medicaments and biological substances; F41.9 Anxiety disorder, unspecified; F32.9 Major depressive disorder, single episode, unspecified; K21.9 Gastro-esophageal reflux disease without esophagitis; F17.210 Nicotine dependence, cigarettes, uncomplicated; Z71.6 Tobacco abuse counseling; Z80.3 Family history of malignant neoplasm of breast; Z80.1 Family history of malignant neoplasm of trachea, bronchus and lung; R05 Cough; Z68.35 Body mass index [BMI] 35.0-35.9, adult; I10 Essential (primary) hypertension; Z82.49 Family history of ischemic heart disease and other diseases of the circulatory system
CPT/HCPCS: 36415; 36600; 70553; 71010; 71260; 74177; 80048; 80053; 80076; 82607; 82728; 82803; 83540; 83550; 85025; 85027; 87040; 87070; 87102; 87106; 87116; 87205; 87206; 87252; 87254; 87278; 88104; 88108; 88305; 89051; 94640; 94760; 99285; A9577; J0171; J2060; J2250; J2920; J3010; Q9967

== ENCOUNTER → 2016-08-20 | Outpatient (CLI) | payer OTHER ==
[~2016-08-20] MED LIST changes: +ALBUTEROL20 ml INH; +CARDURA XL4 MG PO; +CLARITIN10 M3 PO; +NICOTINE PATCH1 EAC1 TD; +PREDNISONE PO
[2016-08-20 12:41] LABS: BASOPHIL# 0.1 X10e3 (0-0.3); BASOPHIL% 0.9 % (0-2.5); EOSINOPHIL# 0.2 X10e3 (0-0.7); EOSINOPHIL% 2.6 % (0.0-7.0); HEMATOCRIT 38.6 % (35.0-45.0); HEMOGLOBIN 12.7 gm/dL (12.0-16.0); LYMPHOCYTE% 32.6 % (17.0-45.0); MEAN CELL VOLUME 91.6 FL (83-96); MEAN CORPUSCULAR HEMOGLOBIN 30.1 PG (28-34); MEAN CORPUSCULAR HGB CONC 32.8 g/dL (30-36); MEAN PLATELET VOLUME 7.6 FL (6.5-11.5); MONOCYTE# 0.4 X10e3 (0-1.0); MONOCYTE% 6.5 % (3.0-12.0); NEUTROPHIL# 3.5 X10e3 (1.5-7.1); NEUTROPHIL% 57.4 % (40-75); PLATELET COUNT 144 X10e3 (140-420); RED BLOOD COUNT 4.22 X10e (3.90-5.30); RED CELL DISTRIBUTION WIDTH 13.8 % (11.0-15.5)
[2016-08-20 12:43] LABS: DIFF IND NO
[2016-08-20 13:06] LABS: CALCIUM SERUM 9.3 mg/dL (8.4-10.2); CREATININE SERUM 1.3 mg/dL (0.6-1.4); GLOM FILT RATE Estimated 45.8 mL/min (>60); POTASSIUM 4.4 mmol/L (3.5-5.1)
== END | disposition home or self-care (01) ==
LOC: CLAB 12:19
PROVIDERS: Internal Medicine Nephrology
DX: N18.3 Chronic kidney disease, stage 3 (moderate) (principal)
CPT/HCPCS: 36415; 80048; 85025

== ENCOUNTER → 2016-11-24 | Outpatient (CLI) | payer OTHER ==
--- NOTE | ~2016-11-24 | CT57 ---
[facility] A Service of [facility] RADIOLOGY TEXT RESULTS PATIENT: QING ASHBY LOCATION: [facility] : 58 UNIT #: [id number] AGE: [address]: Salima Alberts SEX: F ORDER DR: [id number] [facility] [address] [place], [place] [address] [id number] MR#: [id number] Acc #: [id number] NAME: QING ASHBY : 1960 SEX: F STUDY DATE/TIME: 11/24/2016 11:45 UNIT: [facility] ROOM: STUDY DESCRIPTION: CT Chest Wo Cont Attending Physician: Salima Alberts A.P.R.N. Referring Physician: Salima Alberts A.P.R.N. Ordering Physician: Salima Alberts A.P.R.N. Primary Care Physician: Delonte Sherwood M.D. MEDICAL IMAGING REPORT This report is preliminary unless electronic signature is present EXAM CT chest without contrast, 11/24/2016 HISTORY Sinus drainage which began 2 weeks for which is on antibiotic therapy. Followup of pneumonia seen on July 2016 examination. Additional history of cervical cancer, COPD, hypertension. COMPARISON CT chest with contrast 07/31/2016. AP portable chest 08/01/2016. PROCEDURE 5.0 mm axial images through the chest without contrast. Sagittal and coronal reformatted images were obtained. This CT exam was performed with one or more of the following radiation dose reduction techniques: automatic exposure control, adjustment of mA and/or kV according to patient size, and iterative reconstruction. FINDINGS The complete consolidation or atelectasis at the left upper lobe has resolved. The opacification of the left upper lobe bronchus has resolved, as well. There is some chronic band-like scarring within the left lower lobe, unchanged from the prior exam. No acute appearing lung consolidations are identified. No pericardial effusion. No pleural effusion. No pneumothorax. No pathologic adenopathy. Coronary artery calcifications are noted. Small esophageal hiatal hernia. 2.2 cm gallstone is present but no definite pericholecystic inflammation or biliary dilation is seen. Liver is mildly steatotic. Severe left renal atrophy. No acute osseous abnormalities. [facility] A Service of [facility] & [facility] RADIOLOGY TEXT RESULTS PATIENT: QING ASHBY [facility] [id number] : 58 UNIT #: [id number] AGE: [address]: Salima Alberts SEX: F ORDER DR: IMPRESSION 1. No acute chest findings. Interval resolution of left upper lobe consolidation/atelectasis. Interval resolution of mucoid impaction or opacification left upper lobe bronchus, compared to 07/31/2016. 2. Coronary artery calcifications. Correlate with the cardiac history. 3. Small esophageal hiatal hernia. 4. Cholelithiasis. 5. Mild hepatic steatosis. Dictated by... Perri Schwartz M.D. THIS IS AN ELECTRONICALLY VERIFIED REPORT Perri Schwartz M.D. at 11/27/2016 7:33 AM Stefania TD: 11/25/2016 17:18 JOB #: [id number] MEDICAL IMAGING REPORT Page 1 of 1 COPY
== END | disposition home or self-care (01) ==
LOC: CCAT 10:58
DX: J18.9 Pneumonia, unspecified organism (principal); I25.10 Atherosclerotic heart disease of native coronary artery without angina pectoris; K44.9 Diaphragmatic hernia without obstruction or gangrene; R91.8 Other nonspecific abnormal finding of lung field
CPT/HCPCS: 71250